=== PATIENT | female | born 1985 | race American Indian/Alaskan Native ===

== ENCOUNTER 2016-07-12 09:42 | Emergency (ER) | payer BC ==
[2016-07-12 09:59] VITALS: BP 112/45; PULSE 94; RESP 18; TEMP 98.6; O2SAT 100
[2016-07-12 10:00] VITALS: BMI 35.4
--- NOTE | 2016-07-12 10:37 | C.PDOC ---
History Of Present Illness A 30 year old female presents to the ED c/o vaginal bleeding and lower abdominal pain since yesterday. Patient reports the abdominal pain as a cramping pain. Patient is 3 months and does not know how many pregnancies she has had but notes having 2 children. Patient denies fever, chills, diarrhea, LOC, headache, or any other complaints. Time Seen by Provider: 07/12/16 09:57 Chief Complaint (Nursing): Female Genitourinary History Per: Patient History/Exam Limitations: no limitations Onset/Duration Of Symptoms: Days Current Symptoms Are (Timing): Still Present Severity: Mild Location Of Pain/Discomfort: Other (Lower abdominal) Associated Symptoms: denies: Fever, Chills, Diarrhea Past Medical History Reviewed: Historical Data, Nursing Documentation, Vital Signs Vital Signs: Last Vital Signs Temp 98.6 F 07/12/16 09:57 Pulse 94 H 07/12/16 09:57 Resp 18 07/12/16 09:57 BP 112/45 L 07/12/16 09:57 Pulse Ox 100 07/17/16 08:54 Family History: States: Unknown Family Hx - Social History Hx Tobacco Use: No Hx Alcohol Use: No Hx Substance Use: No - Immunization History Hx Tetanus Toxoid Vaccination: No Hx Influenza Vaccination: Yes Hx Pneumococcal Vaccination: No Review Of Systems Except As Marked, All Systems Reviewed And Found Negative. Constitutional: Negative for: Fever, Chills Gastrointestinal: Positive for: Abdominal Pain (Lower abdominal). Negative for : Diarrhea Genitourinary: Positive for: Vaginal Bleeding Neurological: Negative for: Headache, Other (LOC) Physical Exam - Physical Exam Appears: Non-toxic, No Acute Distress Skin: Warm, Dry Head: Atraumatic, Normacephalic Eye(s): bilateral: Normal Inspection Cardiovascular: Rhythm Regular, No Murmur Respiratory: Normal Breath Sounds, No Rales, No Rhonchi, No Wheezing Gastrointestinal/Abdominal: Soft, No Tenderness Neurological/Psych: Oriented x3, Normal Speech, Normal Cognition ED Course And Treatment O2 Sat by Pulse Oximetry: 100 (Room air) Pulse Ox Interpretation: Normal - CT Scan/US US CT/US Interpretation: Impression: Intrauterine gestation compatible with gestational age 8 weeks 1 day by gestational sac calculation and 7 weeks 6 days by crown-rump length calculation. heart motion is not detected. Yolk sac is not visualized. Recommend correlation with quantitative beta HCG and SALES REPRESENTATIVE PUBLIC UTILITIES consultation. Small pelvic free fluid. Medical Decision Making Medical Decision Making: Plans: -US preg 1st trimester/OB TV -Reassess and disposition Results discussed with pt ie high quant but no FH. very likely start of miss however pt will need additional quant and US Plan return to the ED in 2 days for same Disposition - Disposition Disposition: HOME/ ROUTINE Disposition Time: 12:12 Condition: GOOD Additional Instructions: Return to the ED in 2 - 3 days to have repeat blood test Return promptly for new or worsening symptoms Instructions: Threatened Miscarriage (ED) Forms: Work/School/Gym Excuse - Clinical Impression Clinical Impression: Threatened - Scribe Statement The provider has reviewed the documentation as recorded by the Scribe Nery prater All medical record entries made by the Quetaibe were at my direction and personally dictated by me. I have reviewed the chart and agree that the record accurately reflects my personal performance of the history, physical exam, medical decision making, and the department course for this patient. I have also personally directed, reviewed, and agree with the discharge instructions and disposition.
--- NOTE | 2016-07-12 12:04 | US ---
Indication: 12 weeks bleeding Comparison: No recent prior study available for comparison. Transvaginal pelvic ultrasound performed 02/24/15 Technique: Real-time transabdominal pelvic ultrasound was performed. In addition a transvaginal pelvic ultrasound was necessary to better depict pelvic anatomy Findings: The uterus measures approximately 11.2 x 5.3 x 6.2 cm. There is a single intrauterine fetus present. Yolk sac is not identified. The gestational sac measures 3.2 cm and is compatible with a gestational age of 8 weeks 1 day. The crown-rump length measures 1.5 cm and is compatible with a gestational age of 7 weeks 6 days. heart motion is not detected. Cervix length measures approximately 3.5 cm. The right ovary measures 3.0 x 2.2 x 2.9 cm. The left ovary measures 2.8 x 1.3 x 1.9 cm. Blood flow was demonstrated to both ovaries. Small pelvic free fluid. Impression: Intrauterine gestation compatible with gestational age 8 weeks 1 day by gestational sac calculation and 7 weeks 6 days by crown-rump length calculation. heart motion is not detected. Yolk sac is not visualized. Recommend correlation with quantitative beta HCG and MH TEACHER consultation. Small pelvic free fluid.
== END 2016-07-12 13:02 | disposition home or self-care (01) ==
LOC: C.ER 09:42
DX: O20.0 Threatened abortion (principal); Z3A.08 8 weeks gestation of pregnancy

== ENCOUNTER 2016-07-15 10:53 | Emergency (ER) | payer BC ==
[2016-07-15 10:54] VITALS: BMI 35.4
--- NOTE | 2016-07-15 13:11 | C.PDOC ---
History Of Present Illness Patient is a 30 y/o female, , that presents to the ED for repeat blood work. Patient was seen in ED on 07/12/16 for vaginal bleeding, and lower abdominal pain. Patient had ultrasound done at the time which showed IUP approximately 5 weeks, but no FHR. Patient was told to return to ED today for repeat blood work. Patient states bleeding and pain had increased last night with contraction like pain and with passage of blood clots. Pt states her pain and bleeding markedly decreased since last night. Otherwise, denies any n/v/d, fever, chills, or any other associated symptoms at this time. LMP: "end of March" Time Seen by Provider: 07/15/16 11:18 Chief Complaint (Nursing): Female Genitourinary History Per: Patient History/Exam Limitations: no limitations Onset/Duration Of Symptoms: Days Current Symptoms Are (Timing): Still Present Quality Of Discomfort: "Pain" Associated Symptoms: denies: Fever, Chills, Nausea, Vomiting, Diarrhea, Loss Of Appetite, Back Pain, Chest Pain, Constipation, Urinary Symptoms Alleviating Factors: None Recent travel outside of the [place]: No Additional History Per: Patient Abnormal Vaginal Bleeding: Yes Last Menstral Period: "end of March" : 5 Para: 2 Past Medical History Reviewed: Historical Data, Nursing Documentation, Vital Signs Vital Signs: Last Vital Signs Temp 98.3 F 07/15/16 17:35 Pulse 94 H 07/15/16 17:35 Resp 17 07/15/16 17:35 BP 129/72 07/15/16 17:35 Pulse Ox 99 07/15/16 17:35 Family History: States: Unknown Family Hx - Social History Hx Tobacco Use: No Hx Alcohol Use: No Hx Substance Use: No - Immunization History Hx Tetanus Toxoid Vaccination: No Hx Influenza Vaccination: Yes Hx Pneumococcal Vaccination: No Review Of Systems Except As Marked, All Systems Reviewed And Found Negative. Constitutional: Negative for: Fever, Chills Gastrointestinal: Positive for: Abdominal Pain. Negative for: Nausea, Vomiting , Diarrhea, Constipation Genitourinary: Positive for: Vaginal Bleeding. Negative for: Dysuria, Frequency , Hematuria Musculoskeletal: Negative for: Back Pain Physical Exam - Physical Exam Appears: Non-toxic, No Acute Distress Skin: Normal Color, Warm, Dry Head: Atraumatic, Normacephalic Eye(s): bilateral: Normal Inspection, EOMI Neck: Normal ROM, Supple Chest: Symmetrical, No Tenderness Cardiovascular: Rhythm Regular, No Murmur Respiratory: Normal Breath Sounds, No Rales, No Rhonchi, No Wheezing Gastrointestinal/Abdominal: Soft, No Tenderness, No Guarding, No Rebound Back: No CVA Tenderness Pelvic: Normal External Exam, Vaginal Bleeding, No Cervical Motion Tenderness, No Cervix Open (ext os open fingertip, internal os closed. ) Extremity: Normal ROM Neurological/Psych: Oriented x3, Normal Speech, Normal Cognition ED Course And Treatment O2 Sat by Pulse Oximetry: 100 (on RA) Pulse Ox Interpretation: Normal - CT Scan/US transvaginal US Other Rad Studies (CT/US): Read By Radiologist, Radiology Report Reviewed CT/US Interpretation: FINDINGS: UTERUS: Measures 10.1 x 5.4 x 6.2 cm. Anteverted. ENDOMETRIUM: Measures 1.5 cm in diameter. Heterogeneous appearance. Evidence of vascularity. CERVIX: No cervical abnormality identified. RIGHT OVARY: Measures 2.5 x 1.8 x 2.2 cm. Blood flow is demonstrated. LEFT OVARY: Measures 2.8 x 1.6 x 2.3 cm. Blood flow is demonstrated. FREE FLUID: No significant free fluid noted. OTHER FINDINGS: None. IMPRESSION: Intrauterine gestational sac no longer evident. Thickened heterogeneous appearance of the endometrium with evidence of vascularity suspicious for retained products of conception. Correlate clinically. Findings discussed with Brisa Mahan on 07/15/16 at 2:58 p.m. Progress Note: Beta HCG, and transvaginal ultrasound ordered and reviewed. Medical Decision Making Medical Decision Making: pt with decreased beta today (3953) compared to 07/02 (17, 662)- likely a complete ab; await sono results. pt had type and screen done on 07/12, blood type O+. [address] Burkett, no iup seen, +thickened emdometrium, likely retained products. message left for Dr Lerma (oncall ob today); she will come see patient. discussed with Dr Burkett; with closed os. pt can be discharged with methergine 0.2 mg po q 4 htrs x 6 doses with prop making supervisor f/u. Disposition Discussed With : Vilma George Counseled Patient/Family Regarding: Studies Performed, Diagnosis, Need For Followup, Rx Given - Disposition Referrals: Vilma George MD [Staff Provider] - Disposition: HOME/ ROUTINE Disposition Time: 16:59 Condition: STABLE Additional Instructions: Take Methergine rosario 4 hours until completed. Take Ibuprofen 800 mg by mouth every 8 hours for pain, take with food. Follow up with your tuberculosis specialist or with Dr George as soon as possible. Return to ER for any worsening symptoms., Prescriptions: Ibuprofen [Motrin Tab] 800 mg PO Q8 #20 tab Methylergonovine Maleate [Methergine] 0.2 mg PO Q4 #5 tablet Instructions: Spontaneous Miscarriage (ED) Forms: General Discharge Instructions, Work/School/Gym Excuse - Clinical Impression Clinical Impression: Incomplete - PA / AUDIO VISUAL ARTS DIRECTOR / Resident Statement MD/DO has reviewed & agrees with the documentation as recorded. - Scribe Statement The provider has reviewed the documentation as recorded by the Scribe Dayne Sue All medical record entries made by the Scribe were at my direction and personally dictated by me. I have reviewed the chart and agree that the record accurately reflects my personal performance of the history, physical exam, medical decision making, and the department course for this patient. I have also personally directed, reviewed, and agree with the discharge instructions and disposition.
--- NOTE | 2016-07-15 15:01 | US ---
HISTORY: vag bleeding preg COMPARISON: Pelvic ultrasound performed 07/12/16. TECHNIQUE: Real-time transabdominal pelvic ultrasound was performed. In addition a transvaginal pelvic ultrasound was necessary to better depict pelvic anatomy FINDINGS: UTERUS: Measures 10.1 x 5.4 x 6.2 cm. Anteverted. ENDOMETRIUM: Measures 1.5 cm in diameter. Heterogeneous appearance. Evidence of vascularity. CERVIX: No cervical abnormality identified. RIGHT OVARY: Measures 2.5 x 1.8 x 2.2 cm. Blood flow is demonstrated. LEFT OVARY: Measures 2.8 x 1.6 x 2.3 cm. Blood flow is demonstrated. FREE FLUID: No significant free fluid noted. OTHER FINDINGS: None. IMPRESSION: Intrauterine gestational sac no longer evident. Thickened heterogeneous appearance of the endometrium with evidence of vascularity suspicious for retained products of conception. Correlate clinically. Findings discussed with Brisa Mahan on 07/15/16 at 2:58 p.m.
[2016-07-15 17:37] VITALS: BP 129/72; PULSE 94; RESP 17; TEMP 98.3
[2016-07-15 19:00] VITALS: O2SAT 100
== END 2016-07-15 17:37 | disposition home or self-care (01) ==
LOC: C.ER 10:53
DX: O03.4 Incomplete spontaneous abortion without complication (principal)

== ENCOUNTER 2016-10-15 12:07 | Emergency (ER) | payer BC ==
[2016-10-15 12:08] VITALS: BMI 35.4
--- NOTE | 2016-10-15 13:27 | C.PDOC ---
History Of Present Illness 31 y/o female presents to the emergency department with complaints of vaginal bleeding. Pt states she was seen here for miscarriage in June. Her first menses since then was 08/24. Pt states her last menses started 10/04 and is still bleeding, stating "it's not normal." Pt reports mild lower back and abdominal cramping consistent with typical menstrual cramps. Denies, fever, chills, chest pain, palpitations, headache, dizziness vomiting, or any other complaints. Time Seen by Provider: 10/15/16 13:15 Chief Complaint (Nursing): Female Genitourinary History Per: Patient History/Exam Limitations: no limitations Onset/Duration Of Symptoms: Days Current Symptoms Are (Timing): Still Present Severity: Mild Associated Symptoms: denies: Fever, Chills, Nausea, Vomiting, Chest Pain Alleviating Factors: None Recent travel outside of the [place]: No Abnormal Vaginal Bleeding: Yes Past Medical History Reviewed: Historical Data, Nursing Documentation, Vital Signs Vital Signs: Last Vital Signs Temp 97.4 F L 10/15/16 17:09 Pulse 80 10/15/16 17:09 Resp 14 10/15/16 17:09 BP 125/84 10/15/16 17:09 Pulse Ox 100 10/15/16 17:09 Family History: States: Unknown Family Hx - Social History Hx Tobacco Use: No Hx Alcohol Use: No Hx Substance Use: No - Immunization History Hx Tetanus Toxoid Vaccination: No Hx Influenza Vaccination: Yes Hx Pneumococcal Vaccination: No Review Of Systems Except As Marked, All Systems Reviewed And Found Negative. Constitutional: Negative for: Fever, Chills Cardiovascular: Negative for: Chest Pain, Palpitations Respiratory: Negative for: Shortness of Breath Gastrointestinal: Negative for: Nausea, Vomiting Genitourinary: Positive for: Vaginal Bleeding Neurological: Negative for: Headache, Dizziness Physical Exam - Physical Exam Appears: Non-toxic, No Acute Distress Skin: Warm, Dry, No Rash Head: Atraumatic, Normacephalic Eye(s): bilateral: Normal Inspection (conjunctiva normal), PERRL, EOMI Oral Mucosa: Moist Neck: Normal, Normal ROM, Supple Chest: Symmetrical Cardiovascular: Rhythm Regular Respiratory: Normal Breath Sounds, No Rales, No Rhonchi, No Wheezing Gastrointestinal/Abdominal: Normal Exam, Soft, No Tenderness Back: Normal Inspection Extremity: Bilateral: Atraumatic Neurological/Psych: Oriented x3, Normal Speech, Normal Cognition ED Course And Treatment - Laboratory Results Result Diagrams: 10/15/16 16:30 10/15/16 16:30 O2 Sat by Pulse Oximetry: 99 (room air) Pulse Ox Interpretation: Normal Medical Decision Making Medical Decision Making: Patient had a miscarriage in June, as per patient. Her Ucg is positive, but beta is 22, US shown normal pelvic exam. Possible early vs threatened AB Disposition Counseled Patient/Family Regarding: Studies Performed, Need For Followup - Disposition Referrals: [facility] [Outside] [facility] [Outside] Disposition: HOME/ ROUTINE Disposition Time: 18:06 Condition: STABLE Additional Instructions: Follow up with your school aide. If you don't have one, follow up in clinic [facility] CONSTRUCTION WORKER. rest, have your blood test repeated in a few days to evaluate There is a small possibility you have a very early , more likely you are having an irregular mensis and either way you need to follow up with CONSTRUCTION WORKER. Instructions: Menorrhagia (ED) Forms: [facility] (Lao) - POA Present On Arrival: None - Clinical Impression Clinical Impression: Menometrorrhagia - Scribe Statement The provider has reviewed the documentation as recorded by the Randell Anrold Provider Attestation: All medical record entries made by the Randell were at my direction and personally dictated by me. I have reviewed the chart and agree that the record accurately reflects my personal performance of the history, physical exam, medical decision making, and the department course for this patient. I have also personally directed, reviewed, and agree with the discharge instructions and disposition.
[2016-10-15 15:23] LABS: RBC URINE 17 /hpf (0-3); URINE BACTERIA RARE (<OCC); URINE BILIRUBIN NEGATIVE (NEGATIVE); URINE BLOOD 3+ (NEGATIVE); URINE COLOR Amber (YELLOW); URINE GLUCOSE (UA) NORMAL (Normal); URINE KETONE TRACE mg/dL (NEGATIVE); URINE PROTEIN 1+ mg/dL (NEGATIVE); WBC URINE 13 /hpf (0-5)
[2016-10-15 15:31] LABS: URINE LEUKOCYTE ESTERASE 1+ Leu/uL (Negative)
[2016-10-15 16:34] LABS: BASO # 0.1 K/uL (0.0-0.2); BASO % 0.7 % (0.0-2.0); EOS # 0.2 K/uL (0.0-0.7); EOS % 2.3 % (0.0-4.0); HEMATOCRIT 42.8 % (34.0-47.0); LYMPH # 2.5 K/uL (1.0-4.3); LYMPH % 31.1 % (20.0-40.0); MEAN CORPUSCULAR HEMOGLOBIN 27.6 pg (27.0-31.0); MEAN CORPUSCULAR HGB CONC 32.7 g/dL (33.0-37.0); MONO # 0.9 K/uL (0.0-0.8); MONO % 11.2 % (0.0-10.0); NRBC % 0.1 % (0.0-2.0); WHITE BLOOD COUNT 8.2 K/uL (4.8-10.8)
[2016-10-15 16:35] LABS: MEAN CELL VOLUME 84.4 fL (81.0-99.0)
[2016-10-15 16:44] LABS: CHLORIDE 100 mmol/L (98-107); POTASSIUM 4.3 mmol/L (3.6-5.2); SODIUM 141 mmol/L (132-148)
[2016-10-15 16:46] LABS: GFR AFRICAN-AMERICAN > 60
[2016-10-15 16:47] LABS: BLOOD UREA NITROGEN 7 mg/dL (7-17); CARBON DIOXIDE 25 mmol/L (22-30); GLUCOSE,RANDOM 98 mg/dL (65-105)
[2016-10-15 17:10] VITALS: BP 125/84; PULSE 80; RESP 14; TEMP 97.4
[2016-10-15 18:06] VITALS: O2SAT 99
--- NOTE | 2016-10-15 18:08 | US ---
HISTORY: and bleeding COMPARISON: Pelvis ultrasound performed 07/15/16 TECHNIQUE: Pelvis/transvaginal ultrasound FINDINGS: UTERUS: Measures 7.5 x 4.4 x 4.9 cm. Retroverted. ENDOMETRIUM: Measures 3 mm in diameter. No intrauterine gestational sac identified. CERVIX: Cervix length measures approximately 3.6 cm. RIGHT OVARY: Measures 2.9 x 1.8 x 2.2 cm. Blood flow is demonstrated. LEFT OVARY: Measures 3.0 x 1.7 x 2.9 cm. Blood flow is demonstrated. FREE FLUID: Small pelvic free fluid within the cul-de-sac. OTHER FINDINGS: None. IMPRESSION: No evidence of intrauterine gestational sac. If indeed the patient is based on serum beta HCG values, the sonographic findings represent either: Very early IUP; embryonic demise; ectopic gestation. Follow-up with serial quantitative serum beta HCG measurements and post OBGYN follow-up as clinically indicated, since ectopic gestation cannot be excluded based only on sonographic findings. Small pelvic free fluid within the cul-de-sac.
== END 2016-10-15 18:35 | disposition home or self-care (01) ==
LOC: C.ER 12:07
DX: N92.1 Excessive and frequent menstruation with irregular cycle (principal)

== ENCOUNTER 2017-02-05 09:39 | Emergency (ER) | payer BC ==
[2017-02-05 09:57] VITALS: BMI 34.9
--- NOTE | 2017-02-05 10:15 | C.PDOC ---
History Of Present Illness <Reynaldo Irving M - Last Filed: 02/05/17 13:06> <Reginald May - Last Filed: 02/05/17 13:20> This is a 31 y/o F with no pmhx who is presenting for evaluation on lower abdominal cramping x 4 days. She offers that her periods are irregular, presenting every 4-6 weeks. Her LDMP was December 25 2016, so she is in the window to be getting her period soon. Additionally she expresses c/o possible as she has been sexually active without any form of contraceptive care. She localizes her cramping to the lower abdomen, midline and states that she feels this radiate to her back. She characterizes her pain as a cramping sensation and states that there is no real pain to it, just discomfort. She has not sought out any medical care prior to today's presentation. She has not tried any analgesics to relieve her discomfort. She denies headache/n/v/d/c/ dysuria/fevers and chills. (Reginald May) <Reynaldo Irving M - Last Filed: 02/05/17 13:06> <Reginald May - Last Filed: 02/05/17 13:20> Time Seen by Provider: 02/05/17 10:05 Chief Complaint (Nursing): Abdominal Pain Past Medical History - Medical History PMH: No Chronic Diseases Surgical History: No Surg Hx Family History: States: Unknown Family Hx - Social History Hx Tobacco Use: No Hx Alcohol Use: No Hx Substance Use: No - Immunization History Hx Tetanus Toxoid Vaccination: No Hx Influenza Vaccination: Yes Hx Pneumococcal Vaccination: No <Reginald May - Last Filed: 02/05/17 13:20> Vital Signs: Last Vital Signs Temp 98.1 F 02/05/17 13:16 Pulse 72 02/05/17 13:16 Resp 18 02/05/17 13:16 BP 120/69 02/05/17 13:16 Pulse Ox 98 02/05/17 13:16 Review Of Systems Constitutional: Negative for: Fever, Chills Cardiovascular: Negative for: Chest Pain, Palpitations Respiratory: Negative for: Cough, Shortness of Breath Gastrointestinal: Positive for: Abdominal Pain (lower abdomen-midline). Negative for: Nausea, Vomiting, Diarrhea, Constipation, Hematochezia Genitourinary: Negative for: Dysuria, Frequency, Incontinence, Hematuria, Vaginal Discharge Skin: Negative for: Rash Neurological: Negative for: Weakness, Numbness <Reginald May - Last Filed: 02/05/17 13:20> Physical Exam - Physical Exam Appears: Well, No Acute Distress Skin: Warm, Dry Head: Atraumatic, Normacephalic Eye(s): bilateral: Normal Inspection, PERRL Oral Mucosa: Moist Throat: Normal, No Erythema, No Exudate Cardiovascular: Rhythm Regular Respiratory: Normal Breath Sounds, No Rales, No Rhonchi Gastrointestinal/Abdominal: Soft, No Tenderness, No Guarding Neurological/Psych: Oriented x3, Normal Speech Gait: Steady <Reginald May - Last Filed: 02/05/17 13:20> ED Course And Treatment - Laboratory Results Result Diagrams: 02/05/17 11:07 02/05/17 11:07 <Reynaldo Irving - Last Filed: 02/05/17 13:06> - Laboratory Results Result Diagrams: 02/05/17 11:07 02/05/17 11:07 <Reginald May - Last Filed: 02/05/17 13:20> Medical Decision Making <Reynaldo Irving - Last Filed: 02/05/17 13:06> <Reginald May - Last Filed: 02/05/17 13:20> Medical Decision Making: Patient was seen and evaluated by resident DR. May. I have spoken to the patient and also examined. Abdomen is soft and non tender, with positive bowel sounds. I discussed the results with patient and instructed patient to follow up with her OBGYN for further evaluation. 2+ Leukocyte and will treat with Macrobid. Patient is advised to have a repeat US with her OB. Discussed with patient to return to ER for any new concerning symptoms. (Reynaldo Irving) POC test was positive Confirmation urine HCG qualitative was positive Serum B-HCG quantitative was ordered and resulted Pelvic ultrasound was used to r/o ectopic I spoke with patient and explained her test results to her She will need to follow up with her PCP Dr. Bear as well as her WARES SORTER Dr. Sue (Reginald May) Disposition - Disposition Disposition Time: 13:03 <Reynaldo Irving - Last Filed: 02/05/17 13:06> Discussed With DrLuz: Reynaldo Irving Doctor Will See Patient In The: ED Counseled Patient/Family Regarding: Diagnosis, Need For Followup - POA Present On Arrival: None <Reginald May - Last Filed: 02/05/17 13:20> - Disposition Referrals: Misa Bear MD [Primary Care Provider] - Disposition: HOME/ ROUTINE Condition: STABLE Additional Instructions: follow up with your manager eligibility in 2 days call to make an appointment take medications as prescribed return to ER if symptoms worsens or progress Prescriptions: Nitrofurantoin Macrocrystals [Macrobid] 100 mg PO BID #14 cap Instructions: (ED), Urinary Tract Infection in Women (ED) Forms: [facility] (Egyptian), General Discharge Instructions - Clinical Impression Clinical Impression: , Abdominal pain, Threatened , Urinary tract infection
[2017-02-05 10:56] LABS: RBC URINE 1 /hpf (0-3); URINE BACTERIA FEW (<OCC); URINE BILIRUBIN NEGATIVE (NEGATIVE); URINE BLOOD NEGATIVE (NEGATIVE); URINE COLOR Yellow (YELLOW); URINE GLUCOSE (UA) NORMAL (Normal); URINE KETONE NEGATIVE (NEGATIVE); URINE LEUKOCYTE ESTERASE 2+ Leu/uL (Negative); URINE PROTEIN NEGATIVE (NEGATIVE); URINE UROBILINOGEN NORMAL mg/dL (0.2-1.0); WBC URINE 2 /hpf (0-5)
[2017-02-05 11:12] LABS: BASO % 0.5 % (0.0-2.0); EOS # 0.2 K/uL (0.0-0.7); EOS % 2.9 % (0.0-4.0); HEMATOCRIT 39.9 % (34.0-47.0); LYMPH # 1.7 K/uL (1.0-4.3); LYMPH % 33.4 % (20.0-40.0); MEAN CELL VOLUME 84.2 fL (81.0-99.0); MEAN CORPUSCULAR HEMOGLOBIN 27.5 pg (27.0-31.0); MEAN CORPUSCULAR HGB CONC 32.7 g/dL (33.0-37.0); MEAN PLATELET VOLUME 9.7 fL (7.2-11.7); MONO # 0.4 K/uL (0.0-0.8); MONO % 8.6 % (0.0-10.0); RED CELL DISTRIBUTION WIDTH 14.7 % (11.5-14.5); WHITE BLOOD COUNT 5.2 K/uL (4.8-10.8)
[2017-02-05 11:52] LABS: BLOOD UREA NITROGEN 6 mg/dL (7-17); CALCIUM 8.3 mg/dl (8.6-10.4); CARBON DIOXIDE 24 mmol/L (22-30); CHLORIDE 103 mmol/L (98-107); GFR AFRICAN-AMERICAN > 60; GLUCOSE,RANDOM 102 mg/dL (65-105); POTASSIUM 3.9 mmol/L (3.6-5.2); SODIUM 135 mmol/L (132-148)
--- NOTE | 2017-02-05 12:38 | US ---
Indication: r/o ectopic Comparison: Pelvis/transvaginal ultrasound performed 10/15/16 Technique: Real-time transabdominal pelvic ultrasound was performed. In addition a transvaginal pelvic ultrasound was necessary to better depict pelvic anatomy. Findings: The uterus measures approximately 10.3 x 5.3 x 5.8 cm. Anteverted. Small cystic focus measuring approximately 4 mm presumed to represent an intrauterine gestational sac, too small for gestational age calculation. No evidence of yolk sac or pole at this time. The right ovary measures 3.0 x 1.8 x 3.4 cm. The left ovary measures 2.6 x 1.4 x 3.0 cm. Blood flow was demonstrated to both ovaries. Small fluid within the cul-de-sac. Impression: Small cystic focus measuring approximately 4 mm presumed to represent an intrauterine gestational sac, too small for gestational age calculation. No evidence of yolk sac or pole at this time. Recommend correlation with quantitative beta HCG and follow-up as indicated.
[2017-02-05 13:16] VITALS: RESP 18; O2SAT 98
[2017-02-05 13:17] VITALS: BP 120/69; PULSE 72; TEMP 98.1
== END 2017-02-05 13:18 | disposition home or self-care (01) ==
LOC: SUPCPDRO 09:39 → C.ER 09:39
DX: O20.0 Threatened abortion (principal); O23.40 Unspecified infection of urinary tract in pregnancy, unspecified trimester; Z3A.00 Weeks of gestation of pregnancy not specified

== ENCOUNTER 2017-02-15 01:20 | Emergency (ER) | payer BC ==
[2017-02-15 01:21] VITALS: BMI 34.9
[2017-02-15 01:46] VITALS: O2SAT 100
[2017-02-15 03:12] LABS: RBC URINE 1 /hpf (0-3); URINE BACTERIA RARE (<OCC); URINE BILIRUBIN NEGATIVE (NEGATIVE); URINE BLOOD NEGATIVE (NEGATIVE); URINE COLOR Yellow (YELLOW); URINE GLUCOSE (UA) NORMAL (Normal); URINE KETONE NEGATIVE (NEGATIVE); URINE LEUKOCYTE ESTERASE TRACE Leu/uL (Negative); URINE PROTEIN NEGATIVE (NEGATIVE); WBC URINE 1 /hpf (0-5)
[2017-02-15 04:13] VITALS: BP 107/67; PULSE 82; RESP 18; TEMP 98
--- NOTE | 2017-02-15 04:21 | C.PDOC ---
History Of Present Illness 31 year old female presents to the ER with a complaint of lower back pain and constipation for the past 4 days. Patient reports she is 5 weeks and has been feeling nauseous and not well and is requesting an evaluation. Denies abdominal pain, vaginal bleeding, UTI symptoms, dizziness, or weakness. Patient was seen on 02/05/17 where she had a full OB work up but has not followed up with [employer]. Time Seen by Provider: 02/15/17 01:26 Chief Complaint (Nursing): Back Pain History Per: Patient History/Exam Limitations: no limitations Onset/Duration Of Symptoms: Days Current Symptoms Are (Timing): Still Present Quality Of Discomfort: Unable To Describe Previous Symptoms: None Associated Symptoms: Other (Constipation) Exacerbating Factor(s): Nothing Recent travel outside of the [place]: No Past Medical History Reviewed: Historical Data, Nursing Documentation, Vital Signs Vital Signs: Last Vital Signs Temp 98 F 02/15/17 04:10 Pulse 82 02/15/17 04:10 Resp 18 02/15/17 04:10 BP 107/67 02/15/17 04:10 Pulse Ox 100 02/15/17 04:29 - Medical History PMH: No Chronic Diseases Surgical History: No Surg Hx Family History: States: Unknown Family Hx - Social History Hx Tobacco Use: No Hx Alcohol Use: No Hx Substance Use: No - Immunization History Hx Tetanus Toxoid Vaccination: No Hx Influenza Vaccination: Yes Hx Pneumococcal Vaccination: No Review Of Systems Constitutional: Negative for: Weakness Gastrointestinal: Positive for: Nausea. Negative for: Abdominal Pain Genitourinary: Negative for: Dysuria, Hematuria, Vaginal Bleeding Musculoskeletal: Positive for: Back Pain Neurological: Negative for: Dizziness Physical Exam - Physical Exam Appears: Non-toxic, No Acute Distress Skin: Normal Color, Warm, Dry Head: Atraumatic, Normacephalic Eye(s): bilateral: Normal Inspection Oral Mucosa: Moist Chest: Symmetrical, No Tenderness Cardiovascular: Rhythm Regular Respiratory: Normal Breath Sounds, No Rales, No Rhonchi, No Wheezing Gastrointestinal/Abdominal: Soft, No Tenderness Back: No CVA Tenderness Pelvic: Other (Refused) Neurological/Psych: Oriented x3, Normal Speech ED Course And Treatment O2 Sat by Pulse Oximetry: 100 (Room air) Pulse Ox Interpretation: Normal Progress Note: Urinalysis ordered, results were negative. Zofran administered for nausea. Patient given fleet enema with successful bowel movement. UA reviewed- normal. On reevaluation, patient report improvement of symptoms, she is ambulatory in the ER with no back discomfort. Will discharge home with Rx and instructions to follow up with PMD for further evaluation. Disposition Counseled Patient/Family Regarding: Studies Performed, Diagnosis, Rx Given - Disposition Disposition: HOME/ ROUTINE Disposition Time: 04:19 Condition: STABLE Additional Instructions: Increase PO fluids Eat small amount of foods at a time( Start in AM with tea, toast or crackers) Avoid heavy foods Return to ER if worse Prescriptions: Psyllium Husk/Aspartame [Metamucil Fiber Singles Packet] 3.4 gm PO DAILY #20 powd.pack Instructions: Constipation (ED), High Fiber Diet (ED) Forms: [facility] (Korean) - Clinical Impression Clinical Impression: Constipation, - Scribe Statement The provider has reviewed the documentation as recorded by the Scribfilomena Olivares All medical record entries made by the Scribe were at my direction and personally dictated by me. I have reviewed the chart and agree that the record accurately reflects my personal performance of the history, physical exam, medical decision making, and the department course for this patient. I have also personally directed, reviewed, and agree with the discharge instructions and disposition.
--- NOTE | 2017-02-15 04:23 | C.PDOC ---
Time Seen by Provider: 02/15/17 01:26 Chief Complaint (Nursing): Back Pain Past Medical History Vital Signs: Last Vital Signs Temp 98 F 02/15/17 04:10 Pulse 82 02/15/17 04:10 Resp 18 02/15/17 04:10 BP 107/67 02/15/17 04:10 Pulse Ox 100 02/15/17 04:10 Family History: States: Unknown Family Hx - Social History Hx Tobacco Use: No Hx Alcohol Use: No Hx Substance Use: No - Immunization History Hx Tetanus Toxoid Vaccination: No Hx Influenza Vaccination: Yes Hx Pneumococcal Vaccination: No ED Course And Treatment O2 Sat by Pulse Oximetry: 100 Disposition Counseled Patient/Family Regarding: Diagnosis, Need For Followup, Rx Given - Disposition Disposition: HOME/ ROUTINE Disposition Time: 04:19 Condition: STABLE Additional Instructions: Increase PO fluids Eat small amount of foods at a time( Start in AM with tea, toast or crackers) Avoid heavy foods Return to ER if worse Prescriptions: Psyllium Husk/Aspartame [Metamucil Fiber Singles Packet] 3.4 gm PO DAILY #20 powd.pack Instructions: Constipation (ED), High Fiber Diet (ED) - Clinical Impression Clinical Impression: Constipation,
== END 2017-02-15 04:34 | disposition home or self-care (01) ==
LOC: C.ER 01:20
DX: O26.891 Other specified pregnancy related conditions, first trimester (principal); Z3A.01 Less than 8 weeks gestation of pregnancy; K59.00 Constipation, unspecified

== ENCOUNTER 2017-04-23 16:48 | Emergency (ER) | payer BC ==
[2017-04-23 17:18] VITALS: BMI 34.1
[2017-04-23 17:33] VITALS: BP 118/80; PULSE 75; RESP 16; TEMP 97.8; O2SAT 98
[2017-04-23] MEDS ORDERED: Albuterol 0.083% Inhal Sol (2.5 mg/3 mL) UD IH STA (18:08)
[2017-04-23] MEDS ORDERED: Albuterol 0.083% Inhal Sol (2.5 mg/3 mL) UD ONE (18:19)
--- NOTE | 2017-04-23 18:52 | C.PDOC ---
History Of Present Illness 31 yo female, LNMP 12/11/16, 15 wks , come in for evaluation of cold sx for past 2 days associated with runny nose, dry cough, low grade fever, malaise. Otherwise, pt denies high fever, headache, dizziness, neck pain, drooling, CP, SOB, dyspnea, wheezing, abd. pain, V/D, vaginal bleeding, back pain. Ambulate to Ed for evaluation, not in any apparent distress. Time Seen by Provider: 04/23/17 17:57 Chief Complaint (Nursing): Flu-like Symptoms Past Medical History Vital Signs: Last Vital Signs Temp 97.8 F 04/23/17 17:29 Pulse 75 04/23/17 17:29 Resp 16 04/23/17 17:29 BP 118/80 04/23/17 17:29 Pulse Ox 98 04/23/17 17:29 Family History: States: Unknown Family Hx - Social History Hx Tobacco Use: No Hx Alcohol Use: No Hx Substance Use: No - Immunization History Hx Tetanus Toxoid Vaccination: No Hx Influenza Vaccination: Yes Hx Pneumococcal Vaccination: No Physical Exam - Physical Exam Appears: Well, Non-toxic, No Acute Distress Skin: Normal Color, Warm, Dry, No Rash Head: Normacephalic Eye(s): bilateral: PERRL Ear(s): Bilateral: Normal Nose: No Flaring, Discharge (clear rhinorrhea B/L) Oral Mucosa: Moist, No Drooling Tongue: Normal Appearing Lips: Normal Appearing Throat: Erythema (mild B/L), No Drooling Neck: Trachea Midline, Supple Cardiovascular: Rhythm Regular, No Murmur, No JVD Respiratory: No Decreased Breath Sounds, No Accessory Muscle Use, No Stridor, No Wheezing Gastrointestinal/Abdominal: Soft, No Tenderness, No Distention, No Guarding Back: No CVA Tenderness Extremity: Normal ROM, No Deformity, No Swelling Neurological/Psych: Oriented x3, Normal Speech ED Course And Treatment O2 Sat by Pulse Oximetry: 98 Pulse Ox Interpretation: Normal Progress Note: On re-evaluation, pt is afebrile, hemodynamicaly stable, not in any apparent distress. non-toxic. PulsEOx 98% rA. ENT: no acute findings. Neck: Supple, (-) meningeal sign. Lungs: CTA B/L, Bs equal B/L. Abd:benidgn, ( -) guarding, (-) rebound. Neuorlogicaly intact. Influenza (-). Pt has clinical findings c/w acute bronchitis, . Pt advised. ref. to f/u with PMD in 2-3 days for re-eval. return to ED if any worsening or new changes. Disposition Counseled Patient/Family Regarding: Diagnosis, Need For Followup, Rx Given - Disposition Disposition: HOME/ ROUTINE Disposition Time: 18:49 Condition: STABLE Additional Instructions: ENCOURAGE FLUIDS TAKE MEDICATION PRESCRIBED TYLENOL S NEED FOR PAIN AND FEVER FOLLOW UP WITH PMD IN 2-3 DAYS FOR RE-EVALUATION. RETURN TO ED IF ANY WORSENING OR NEW CHANGES. Prescriptions: Albuterol HFA [Ventolin HFA 90 mcg/actuation (8 g)] 1 puff IH Q6 #1 inhaler Azithromycin [Zithromax] 250 mg PO DAILY #4 tab Prednisone [Deltasone] 40 mg PO DAILY #6 tablet Instructions: Acute Bronchitis (ED) - Clinical Impression Clinical Impression: Bronchitis,
== END 2017-04-23 19:19 | disposition home or self-care (01) ==
LOC: C.ER 16:48
DX: O99.512 Diseases of the respiratory system complicating pregnancy, second trimester (principal); J40 Bronchitis, not specified as acute or chronic; Z3A.15 15 weeks gestation of pregnancy

== ENCOUNTER 2017-09-13 16:33 | Emergency (ER) | payer BC ==
[2017-09-13] MEDS ORDERED: Lactated Ringer's 1,000 ML IV ONE (17:12)
[2017-09-13 17:36] LABS: BASO % 0.2 % (0.0-2.0); EOS % 0.4 % (0.0-4.0); HEMOGLOBIN 11.1 g/dL (11.0-16.0); LYMPH # 1.2 K/uL (1.0-4.3); LYMPH % 13.4 % (20.0-40.0); MEAN CELL VOLUME 77.6 fL (81.0-99.0); MEAN CORPUSCULAR HEMOGLOBIN 25.5 pg (27.0-31.0); MEAN CORPUSCULAR HGB CONC 32.9 g/dL (33.0-37.0); MEAN PLATELET VOLUME 9.8 fL (7.2-11.7); MONO # 1.1 K/uL (0.0-0.8); MONO % 12.1 % (0.0-10.0); NEUT # 6.5 K/uL (1.8-7.0); NEUT % 73.9 % (50.0-75.0); NRBC % 0.1 % (0.0-2.0); RBC 4.34 Mil/uL (3.80-5.20); RED CELL DISTRIBUTION WIDTH 13.6 % (11.5-14.5); WHITE BLOOD COUNT 8.9 K/uL (4.8-10.8)
[2017-09-13 17:52] LABS: ALBUMIN 3.7 g/dL (3.5-5.0); ALT/SGPT 35 U/L (9-52); AST/SGOT 31 U/L (14-36); BLOOD UREA NITROGEN 6 mg/dL (7-17); CALCIUM 9.3 mg/dl (8.6-10.4); GFR AFRICAN-AMERICAN > 60; GFR NON-AFRICAN AMERICAN > 60
[2017-09-13 21:03] LABS: SQUAMOUS EPITHIAL 7 /hpf (0-5); URINE BILIRUBIN NEGATIVE (NEGATIVE); URINE BLOOD NEGATIVE (NEGATIVE); URINE CLARITY Clear (Clear); URINE COLOR Amber (YELLOW); URINE GLUCOSE (UA) NORMAL (Normal); URINE LEUKOCYTE ESTERASE NEG Leu/uL (Negative); URINE PROTEIN 1+ mg/dL (NEGATIVE)
--- NOTE | 2017-09-14 00:10 | OBHP ---
Datetime: 09/13/2017 17:30 IP Adm Impression: , intrauterine IP Chief Complaint Other: C/O of Nausea, vomiting for a couple of days IP Admit Plan: Admit to unit; Observation/Evaluation Admit Comment, IP Provider: 32 yo female with an IUP at 36 1/7 weeks [address] sent by Dr. Sue for evaluatiion of persistent N_V for a couple of days. + FM and denies leaking or bleeding. No contractions Reassuring tracing Labs were ordered, IV hydration with LR and antiemetics were order. Will reassess later Pelvic Type - PN: Not Done Extremities - PN: Normal Abdomen - PN: Normal Back - PN: Normal Breast - PN: Not Done Lungs - PN: Normal Heart - PN: Normal Thyroid - PN: Normal Neurologic - PN: Normal HEENT - PN: Normal General - PN: Normal Presentation-Admit: Vertex FHR - Baseline A Provider: 130 Membranes, Provider: Intact Contraction Comments Provider: None Gestation - Est Wks by US: 36 1/7 EGA AdmitDate IP: 36.1 Vital Signs Provider: Reviewed; Within Normal Limits IP Chief Complaint: Illness; Other NICHD Variability Prov Fetus A: Moderate 6-25bpm NICHD Accel Fetus A IP Provider: 10X10 FHR Category Provider Fetus A: Category I NICHD Decel Fetus A IP Provider: None Dilatation, Provider: N/A Genitourinary Exam: Normal DTRs - PN: Not Done
--- NOTE | 2017-09-14 00:14 | OBDCSUM ---
Datetime: 09/13/2017 21:37 Discharged to, Provider: Home Follow up at, Provider: Disch Instr Activity: Normal activity Disch Instr Diet: Regular Discharge Diet restrict Prov: Increase po water intake Discharge Instructions, Provider: Specific instructions as noted Discharge Time: 09/13/2017 21:37 Follow up in weeks, Provider: 09/16/17 Disch Referrals: None Discharge Comment, Provider: FHT's reassuring/ No contractions [place] much better after IV Hydration Labs essentially WNL except + Dehydration in urine Nausea and vomiting stopped after Zofran Pt slept for a while and woke up feeling much better and requested to go home. Discharge home in Stable and Satisfactory condition Dr. Sue was notified of pt's condition and recovery Discharge Diagnosis Prov Other: S/P N_V
[2017-09-14 04:23] VITALS: BP 114/65; PULSE 100; RESP 18; TEMP 99
[2017-09-14] MEDS ORDERED: Prenatal Multivit/Folic Acid/Iron Tab PO SCH (10:00)
== END 2017-09-13 21:45 | disposition home or self-care (01) ==
LOC: C.EROB 16:33
DX: O21.9 Vomiting of pregnancy, unspecified (principal); Z3A.36 36 weeks gestation of pregnancy
CPT/HCPCS: 80053; 81001; 85025; 99283; J2405; J7120

== ENCOUNTER 2017-09-15 16:03 | Emergency (ER) | payer BC ==
--- NOTE | 2017-09-15 17:48 | OBHP ---
Datetime: 09/15/2017 17:39 IP Chief Complaint Other: Severe heartburn and nausea sometimes Admit Comment, IP Provider: 32 yo female with an IUP at 36 weeks and presented with c/o of s evere heartburn for 2 days and worsening and making impossible to even eat. Not helped with Mylanta Admits to adequate FM and FH tracing reactive. Pt was seen in [facility] on 09/13 with complain of intractable N_V, Dehydration and was treated and felt better and was discharged home. Will give Pepcid po and do a NST and continue observation Pelvic Type - PN: Not Done Extremities - PN: Not Done Abdomen - PN: Abnormal Back - PN: Not Done Breast - PN: Not Done Lungs - PN: Normal Heart - PN: Normal Thyroid - PN: Not Done Neurologic - PN: Normal HEENT - PN: Normal General - PN: Normal FHR - Baseline A Provider: 130 Membranes, Provider: Intact Contraction Comments Provider: Ocassional Comments, ACOG Physical Exam: + epigastric tenderness Gestation - Est Wks by US: 36.3 EGA AdmitDate IP: 36.3 Vital Signs Provider: Reviewed IP Chief Complaint: Illness; Maternal discomfort; Other NICHD Variability Prov Fetus A: Moderate 6-25bpm NICHD Accel Fetus A IP Provider: 10X10 FHR Category Provider Fetus A: Category I NICHD Decel Fetus A IP Provider: None Genitourinary Exam: Not Done DTRs - PN: Not Done
--- NOTE | 2017-09-15 19:19 | OBDCSUM ---
Datetime: 09/15/2017 18:46 Discharged to, Provider: Home Follow up at, Provider: dr aggarwal on saturday Disch Instr Activity: Normal activity Disch Instr Diet: Regular Discharge Instructions, Provider: Routine instructions given Discharge Time: 09/15/2017 18:46 Follow up in weeks, Provider: saturday Disch Referrals: None Discharge Comment, Provider: Pt was given one dose of Pepcid and felt much better Tolerated flat Trupti Yue tracing reassuring all the time here and no labor D/C home with instructions and Rx for Pepcid [address] Aggarwal notified by me via phone Discharge Diagnosis Prov Other: Abdominal Pain Heartburn
[2017-09-15 23:03] VITALS: BP 117/73; PULSE 96
== END 2017-09-15 19:00 | disposition home or self-care (01) ==
LOC: C.EROB 16:03
DX: O26.893 Other specified pregnancy related conditions, third trimester (principal); R12 Heartburn; Z3A.36 36 weeks gestation of pregnancy

== ENCOUNTER 2017-09-30 13:30 | Emergency (ER) | payer BC ==
--- NOTE | 2017-09-30 16:17 | OBHP ---
Datetime: 09/30/2017 13:48 IP Adm Impression: Term, intrauterine ; Intact Membranes IP Admit Plan: Observation/Evaluation Admit Comment, IP Provider: CC: Abdominal Pain HPI: Patient is a 32 year old at 38 weeks and 4 days, with LMP ( December) and due date by LMP ( 10/10/17), who presents to the clinic with complaints of lower back cramping, lower abdominal pr essure and vaginal discomfort. Patient admits to movement and admits to possible leakage of flu id but denies vaginal bleeding. Patient's last sexual intercourse was 10/03/17. Acute Coordinator Hx: Menarche: 12 Tri[place]: Regular, 3-5 days Denies hx of fibroid, ovarian cyst, STDs and abnormal pap smear OB Hx: G1: Baby girl, 03/13/2006, 6ibs 7oz, 21 inches, vaginal delivery and no complications G2: Baby girl, 01/04/11, 6lbs 6oz, 19 inches, vaginal delivery and no complications G3: Misscarriage at 13 weeks G4: Current, no complications PMHx: Denies PSHx: Dental work FHX: mother: HTN, DM and Asthma Father: HTN Medications: not taking prenatals due to hyperemesis Allergies: Latex, Hives Social Hx: Lives with her children, 3 cigarettes per day ( No cigars during this ), ETOH and illicit drug VS: BP (117/73), HR (96) Physical Exam: See above A/p: Patient is a 32 year old at 38 weeks and 4 days, with LMP ( December) and due date by LMP ( 10/10/17), who presents to the clinic with complaints of lower back cramping, lower abdominal pressur e and vaginal discomfort. Admitted to [facility] for monitoring and observation Pelvic Type - PN: Adequate Extremities - PN: Normal Abdomen - PN: Normal Back - PN: Normal Breast - PN: Not Done Lungs - PN: Normal Heart - PN: Normal Thyroid - PN: Normal Neurologic - PN: Normal HEENT - PN: Normal General - PN: Normal FHR - Baseline A Provider: 120 Membranes, Provider: Intact Comments, ACOG Physical Exam: GEN: NAD Cardio: RRR, no murmurs Pulm: CTA bilaterally Abdom: Soft, gravid, fundal height ( 38cm) Ext: No edema, no cyanosis and no clubbing EFM: FHR : 120, + accels TOCO: None EGA AdmitDate IP: 38.4 Vital Signs Provider: Reviewed; Within Normal Limits IP Chief Complaint: Suspected ruptured membranes NICHD Variability Prov Fetus A: Moderate 6-25bpm NICHD Accel Fetus A IP Provider: 10X10 FHR Category Provider Fetus A: Category I NICHD Decel Fetus A IP Provider: None Dilatation, Provider: 0 Genitourinary Exam: Normal DTRs - PN: Normal
--- NOTE | 2017-09-30 16:21 | OBDCSUM ---
Datetime: 09/30/2017 16:15 Discharged to, Provider: Home Follow up at, Provider: Disch Instr Activity: Normal activity Disch Instr Diet: Regular Discharge Instructions, Provider: Routine instructions given Discharge Diagnosis, Provider: Term Delivered Discharge Time: 09/30/2017 16:15 Follow up in weeks, Provider: scheduled appointment Discharge Comment, Provider: Pt c/o of leaking of fluid SSE performed and no pool of fluid and Nitrazine negative Cx closed and long NST reactive Dr Robles in to see patient and she was discharged home with instructions to f/up in office. Datetime: 09/30/2017 15:23 Discharged to, Provider: Home Follow up at, Provider: DR ROBLES Disch Instr Activity: Normal activity Disch Instr Diet: Regular Discharge Time: 09/30/2017 15:23 Disch Referrals: None
== END 2017-09-30 15:23 | disposition home or self-care (01) ==
LOC: C.EROB 13:30
DX: O26.893 Other specified pregnancy related conditions, third trimester (principal); R10.30 Lower abdominal pain, unspecified; Z3A.38 38 weeks gestation of pregnancy

== ENCOUNTER 2017-10-07 09:35 | Inpatient (IN) | payer BC ==
[2017-10-07] MEDS ORDERED: Lactated Ringer's 1,000 ML IV ONE (10:43)
--- NOTE | 2017-10-07 11:05 | OBHP ---
Datetime: 10/07/2017 11:00 IP Adm Impression: Term, intrauterine IP Admit Plan: Admit to unit Admit Comment, IP Provider: @ 39.4 wks GA c/o lof, with crmapgn pian eveyr 10 min 09/24 dies vb, +FM OB: X 2 FT Uncompilcated LABORER GENERAL: Denies PMH: Dneis PSH: denies FH:X non contriboiryr MEDS: PNV SHX: neative etoh/tobacc/durgs NKDA A/P @ 39.4 wks GA with oligohymdramnis admit to L+D npo, ivf admisison labs cont otoc oadn efm pain managmet Pelvic Type - PN: Adequate Extremities - PN: Normal Abdomen - PN: Normal Back - PN: Normal Breast - PN: Normal Lungs - PN: Normal Heart - PN: Normal Thyroid - PN: Not Done Neurologic - PN: Normal HEENT - PN: Normal General - PN: Normal Presentation-Admit: Vertex FHR - Baseline A Provider: 145 Membranes, Provider: Intact Contraction Comments Provider: irreglar Comments, ACOG Physical Exam: ULtrsoudn vertex, tha 4.3cm Gestation - Est Wks by US: 39.4 IP Hx Assessment: The History has been Reviewed and is Current EGA AdmitDate IP: 39.4 Vital Signs Provider: Reviewed; Within Normal Limits IP Chief Complaint: Suspected ruptured membranes NICHD Variability Prov Fetus A: Moderate 6-25bpm FHR Category Provider Fetus A: Category I NICHD Decel Fetus A IP Provider: None Dilatation, Provider: 2 Effacement, Provider: 50-3 Genitourinary Exam: Normal DTRs - PN: Normal
--- NOTE | 2017-10-07 11:19 | OBADHP ---
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 PMH: Dneis PSH: denies FH:X non contriboiryr MEDS: PNV SHX: neative etoh/tobacc/durgs NKDA A/P @ 39.4 wks GA with oligohymdramnis admit to L+D npo, ivf admisison labs cont otoc oadn efm pain managmet Pelvic Type - PN: Adequate Extremities - PN: Normal Abdomen - PN: Normal Back - PN: Normal Breast - PN: Normal Lungs - PN: Normal Heart - PN: Normal Thyroid - PN: Not Done Neurologic - PN: Normal HEENT - PN: Normal General - PN: Normal Presentation-Admit: Vertex FHR - Baseline A Provider: 145 Membranes, Provider: Intact Contraction Comments Provider: irreglar Comments, ACOG Physical Exam: ULtrsoudn vertex, tha 4.3cm Gestation - Est Wks by US: 39.4 IP Hx Assessment: The History has been Reviewed and is Current Vital Signs Provider: Reviewed; Within Normal Limits IP Chief Complaint: Suspected ruptured membranes NICHD Variability Prov Fetus A: Moderate 6-25bpm FHR Category Provider Fetus A: Category I NICHD Decel Fetus A IP Provider: None Dilatation, Provider: 2 Effacement, Provider: 50-3 Genitourinary Exam: Normal DTRs - PN: Normal EGA AdmitDate IP: 39.4 IP Adm Impression: Term, intrauterine IP Admit Plan: Admit to unit Datetime: 09/30/2017 13:48 NICHD Accel Fetus A IP Provider: 10X10 Datetime: 09/15/2017 17:39 IP Chief Complaint Other: Severe heartburn and nausea sometimes
[2017-10-07 11:22] LABS: BASO % 0.4 % (0.0-2.0); EOS % 0.8 % (0.0-4.0); HEMOGLOBIN 10.4 g/dL (11.0-16.0); LYMPH # 1.5 K/uL (1.0-4.3); LYMPH % 25.5 % (20.0-40.0); MEAN CELL VOLUME 77.4 fL (81.0-99.0); MEAN CORPUSCULAR HEMOGLOBIN 25.3 pg (27.0-31.0); MEAN CORPUSCULAR HGB CONC 32.7 g/dL (33.0-37.0); MEAN PLATELET VOLUME 9.9 fL (7.2-11.7); MONO # 0.3 K/uL (0.0-0.8); MONO % 5.4 % (0.0-10.0); NEUT # 4.1 K/uL (1.8-7.0); NEUT % 67.9 % (50.0-75.0); NRBC % 0.1 % (0.0-2.0); RBC 4.1 Mil/uL (3.80-5.20); RED CELL DISTRIBUTION WIDTH 14.5 % (11.5-14.5); WHITE BLOOD COUNT 6.1 K/uL (4.8-10.8)
[2017-10-07 11:36] LABS: ALB/GLOB RATIO 0.9 (1.0-2.1); ALBUMIN 3.2 g/dL (3.5-5.0); ALT/SGPT 17 U/L (9-52); AST/SGOT 17 U/L (14-36); BLOOD UREA NITROGEN 5 mg/dL (7-17); CALCIUM 8.8 mg/dl (8.6-10.4); GFR AFRICAN-AMERICAN > 60; GFR NON-AFRICAN AMERICAN > 60
[2017-10-07 12:03] LABS: HEPATITIS B SURFACE AG Negative (NEGATIVE)
[2017-10-07 12:24] LABS: URINE BILIRUBIN NEGATIVE (NEGATIVE); URINE BLOOD NEGATIVE (NEGATIVE); URINE CLARITY Clear (Clear); URINE COLOR Yellow (YELLOW); URINE GLUCOSE (UA) NORMAL (Normal); URINE LEUKOCYTE ESTERASE TRACE Leu/uL (Negative); URINE PROTEIN NEGATIVE (NEGATIVE); URINE UROBILINOGEN NORMAL mg/dL (0.2-1.0)
[2017-10-07 13:02] LABS: SQUAMOUS EPITHIAL 10 /hpf (0-5); URINE BACTERIA RARE (<OCC)
--- NOTE | 2017-10-07 16:34 | OBPN ---
Datetime: 10/07/2017 16:30 IP Progress Impression: Normal progression of labor IP Informed Consent Obtain: Vaginal Delivery IP Procedures: Artificial ROM IP Progress Plan: Continue present management Membranes, Provider: Ruptured Amniotic Fluid Color, Provider: Clear FHR - Baseline A Provider: 135 Gestation - Est Wks by US: 39.4 Presentation-Admit: Vertex IP Progress Note Comment: pt seen adn examied c/o crampgn pain increasing intesntiy adn frquency VSS VE: 4/50/-3 vtx intact EFM: Cat I TOCO: q 2-3 min A/{ @ 39.4 wks GA in active labor -cont current mangmante FHR Category Provider Fetus A: Category I NICHD Variability Prov Fetus A: Moderate 6-25bpm Dilatation, Provider: 4 Effacement, Provider: 50 Station, Provider: -3 NICHD Decel Fetus A IP Provider: None Datetime: 10/07/2017 11:00 Contraction Comments Provider: irreglar Vital Signs Provider: Reviewed; Within Normal Limits Datetime: 09/30/2017 13:48 NICHD Accel Fetus A IP Provider: 10X10
[2017-10-07] MEDS ORDERED: DiphenhydrAMINE 50 mg/ml Inj IVP STA (16:36)
[2017-10-07] MEDS ORDERED: DiphenhydrAMINE 50 mg/ml Inj ONE (16:40)
[2017-10-07] MEDS ORDERED: Nalbuphine HCL 10 mg/ml Ampule IVP ONE (16:46)
[2017-10-07] MEDS ORDERED: Oxytocin 30 UNIT 30 UNITS/500 ML BAG IV SCH (18:15)
[2017-10-07] MEDS ORDERED: Oxytocin 30 UNIT 30 UNITS/500 ML BAG IV ONE (18:43)
--- NOTE | 2017-10-07 20:50 | OBPN ---
Datetime: 10/07/2017 20:45 IP Progress Impression: Normal progression of labor IP Progress Plan: Continue present management Membranes, Provider: Ruptured FHR - Baseline A Provider: 140 Gestation - Est Wks by US: 39.4 Presentation-Admit: Vertex IP Progress Note Comment: pt seen adn examiend c/o pain requesitng pain medicain VSS VE :/-2 vtx AROM, clear EMF: Cat I TOCO: q 2-5 min A/P @ 39.4 wks GA In labs anetehsi consult: thea sanchez, opting for epidural cont current managament Vital Signs Provider: Reviewed; Within Normal Limits FHR Category Provider Fetus A: Category I NICHD Variability Prov Fetus A: Moderate 6-25bpm Dilatation, Provider: 5 Effacement, Provider: 70 Station, Provider: -2
[2017-10-07] MEDS ORDERED: Bupivacaine HCl/FentaNYL Cit 100 ML EPI ONE (21:26)
[2017-10-07] MEDS ORDERED: Lidocaine Hydrochloride 0 ML INJ ONE (21:36)
--- NOTE | 2017-10-07 22:45 | OBPN ---
Datetime: 10/07/2017 22:40 IP Progress Impression: Normal progression of labor; Non-reassuring heart rate IP Progress Plan: Continue present management Membranes, Provider: Ruptured FHR - Baseline A Provider: 135 Gestation - Est Wks by US: 39.4 Presentation-Admit: Vertex IP Progress Note Comment: Pt seen and eamiend s/p epdural with variablity decleraitn oxygen, left lateral decuilbts postion, ivh VSS V:E 7cm EMF: dillon II TOCO: q 2-4 mn A/P @ 39.4 wks GA in labor -oxygen, left lateral ivh, -dc pitoicsn -consider amnioinfusion FHR Category Provider Fetus A: Category II NICHD Variability Prov Fetus A: Moderate 6-25bpm Dilatation, Provider: 7 Effacement, Provider: 80 Station, Provider: -1 NICHD Decel Fetus A IP Provider: Variable
--- NOTE | 2017-10-07 23:23 | OBDS ---
MATERNAL INFORMATION Provider Comments: pt was fully dilated and pushing, atruamtic, spontaneous dleivye rof head, tight nuchal cord x 1 looseend. atraumati, spontanoues delivery of anteiror followed by posteroir sholuder followed by delivery of the body. both oral and nasal pasages of the baby were bulb suctioned. umbili jackeline crod clamped and cut. baby handed to mother on abodmen with rn assistance. Cord blood adn cord g asese collected and sent x 2. Spontaneous delivery of intact placenta with membranes. Funuds firm. G ood hemostasis. intact perineum, no lacerations. live female infant agpars 9,9 weigt of 7lbs 8 ounces ebl 200ml no complications pediatrican present for delivery LABOR SUMMARY EDC: 10/10/2017 00:00 No. Babies in Womb: 1 Attempted: No Labor Anesthesia: None LABOR INFORMATION Onset of Labor: 10/07/2017 16:23 Cervical Ripening Agents: Cervidil (Annotations: removed at this time) Group B Beta Strep: Negative (Annotations: 09/16/17) MEMBRANES Membranes Rupture Method: Artificial Amniotic Fluid Color: Clear Amniotic Fluid Amount: Moderate Amniotic Fluid Odor: Normal STAGES OF LABOR Stage 3 hrs: 0 Stage 3 min: 4 Total Time in Labor hrs: 6 Total Time in Labor min: 52 BABY A INFORMATION Infant Delivery Date/Time: 10/07/2017 23:11 Method of Delivery: Vaginal Born in Route : No : N/A Forceps: N/A Vacuum Extraction: N/A Shoulder Dystocia : No SHOULDER DYSTOCIA BABY A Infant Delivery Date/Time: 10/07/2017 23:11 PRESENTATION/POSITION BABY A Presentation: Cephalic Cephalic Presentation: Vertex Breech Presentation: N/A PLACENTA INFORMATION BABY A Placenta Delivery Time : 10/07/2017 23:15 Placenta Method of Delivery: Spontaneous Placenta Status: Delivered INFORMATION BABY A Gestational Age at Delivery: 39.4 Gestational Status: Term Infant Outcome : Liveborn Condition : Stable Sex: Female IDENTIFICATION/MEDS BABY A ID Band Number: [id number] ID Band Location: Left Leg; Left Arm Sensor Applied: Yes Sensor Number: [id number] Sensor Location : Cord Clamp Vitamin K Given : Aquamephyton 1 mg IM WEIGHT/LENGTH BABY A Infant Birthweight (gms): 3410 Weight (lb): 7 Weight (oz): 8 Infant Length Inches: 20.00 Length cms: 50.8 CORD INFORMATION BABY A No. Cord Vessels: 3 Nuchal Cord : Around Neck x1, Tight Cord Blood Taken: Yes Suction: None
--- NOTE | 2017-10-08 07:03 | OBPPN ---
Datetime: 10/08/2017 06:57 PP Pain Prov: Within normal limits PP Nausea Prov: Denies PP Flatus Prov: Yes PP BM Prov: No PP Breasts Prov: Normal PP Heart Prov: Normal PP Lungs Prov: Normal PP Abdomen/Uterus Prov: Normal PP Lochia Prov: Normal PP Vulva/Perineum Prov: Normal PP CVA Tenderness Prov: Normal PP Extremities Prov: Normal PP C/S Incision Prov: Not Applicable PP Progress Prov: Normal PP Impression Prov: Normal progression PP Plan Prov: Continue present management PP Progress Note Prov: pt seen and examined adn reports pain is well controlled. Pt denies any fever , chills, nause, vomiing, cp, sob, bowel concner. pt is ambulating, voiding, passing flatus, tolerat ing regular diet, bresat feedign adn denies any sadness or depression VSS PE GEN NAD AAO x 3 RESP: CTAB?/l CVS: RRR, +S1/S2 ABD: Soft, NT/ND, no ugarding, no rebound tendnerss, no rigidity, B+S FUNDUS: Firm, at leve of umbiulics, non tender VE: minimal lochia, non foul smelling EXT: no calf tendnerss b/l, negatrive homans sign A/P s/p PPD #1 am labs pain managment regular diet encourage mabatiuon / breast feeding Vital Signs Provider PP: Reviewed; Within Normal Limits
[2017-10-08] MEDS: Oxycodone/Acetaminophen 5/325 mg Tab PO PRN ×3 (07:50→21:20)
[2017-10-08 08:52] LABS: BASO % 0.2 % (0.0-2.0); EOS % 0.3 % (0.0-4.0); HEMOGLOBIN 9.9 g/dL (11.0-16.0); LYMPH # 2.1 K/uL (1.0-4.3); LYMPH % 20.1 % (20.0-40.0); MEAN CELL VOLUME 77.5 fL (81.0-99.0); MEAN CORPUSCULAR HGB CONC 32.3 g/dL (33.0-37.0); MEAN PLATELET VOLUME 10.1 fL (7.2-11.7); MONO # 0.8 K/uL (0.0-0.8); MONO % 7.9 % (0.0-10.0); NEUT # 7.3 K/uL (1.8-7.0); NEUT % 71.5 % (50.0-75.0); RBC 3.96 Mil/uL (3.80-5.20); RED CELL DISTRIBUTION WIDTH 14.4 % (11.5-14.5)
[2017-10-08 08:56] LABS: WHITE BLOOD COUNT 10.2 K/uL (4.8-10.8)
[2017-10-08] MEDS: Multiple Vitamins Tab PO SCH (10:04)
[2017-10-09] MEDS: Oxycodone/Acetaminophen 5/325 mg Tab PO PRN ×4 (02:38→21:04)
[2017-10-09] MEDS: Multiple Vitamins Tab PO SCH (09:02)
--- NOTE | 2017-10-09 12:15 | OBPPN ---
Datetime: 10/09/2017 12:14 PP Pain Prov: Within normal limits PP Nausea Prov: Denies PP Flatus Prov: Yes PP BM Prov: Yes PP Breasts Prov: Normal PP Heart Prov: Normal PP Lungs Prov: Normal PP Abdomen/Uterus Prov: Normal PP Lochia Prov: Normal PP Vulva/Perineum Prov: Normal PP CVA Tenderness Prov: Normal PP Extremities Prov: Normal PP C/S Incision Prov: Not Applicable PP Progress Prov: Normal PP Impression Prov: Normal progression PP Plan Prov: Continue present management; Discharge PP Progress Note Prov: pt seen and examiend reprots sydnee voorting, delilahaitn, ovidng, pasisf lfauts , VSS PE see aobve a/p s/p ppd #2 dc home rto 6 weeks Vital Signs Provider PP: Reviewed; Within Normal Limits
--- NOTE | 2017-10-09 12:18 | OBDCSUM ---
Datetime: 10/09/2017 12:15 Discharged to, Provider: Home Follow up at, Provider: Dr Sue Disch Instr Activity: Normal activity Disch Instr Diet: Regular Discharge Instructions, Provider: Routine instructions given Discharge Diagnosis, Provider: Term Delivered Discharge Time: 10/09/2017 12:15 Follow up in weeks, Provider: 6 weeks Disch Referrals: None Contraception discussed, Prov: Yes Disch Activity Restrictions: No sexual activity; Nothing in vagina - [place], tampons, douche Contraception after Delivery: Not Planning to Use
[2017-10-10 00:42] VITALS: TEMP 98.3; O2SAT 98
[2017-10-10] MEDS: Oxycodone/Acetaminophen 5/325 mg Tab PO PRN (04:14)
--- NOTE | 2017-10-10 04:38 | OBDCSUM ---
Datetime: 10/10/2017 04:37 Discharged to, Provider: Home Follow up at, Provider: Dr Vikram Watkins Instr Activity: Normal activity Disch Instr Diet: Regular Discharge Instructions, Provider: Routine instructions given Discharge Diagnosis, Provider: Term Delivered Discharge Time: 10/10/2017 11:00 Follow up in weeks, Provider: Ketan Watkins Referrals: None Contraception discussed, Prov: Yes Disch Activity Restrictions: No sexual activity; Nothing in vagina - [place], tampons, douche Discharge Comment, Provider: pt declined contrapceiton pror to discharge Contraception after Delivery: Not Planning to Use
--- NOTE | 2017-10-10 04:38 | OBPPN ---
Datetime: 10/10/2017 04:36 PP Pain Prov: Within normal limits PP Nausea Prov: Denies PP Flatus Prov: Yes PP BM Prov: Yes PP Breasts Prov: Normal PP Heart Prov: Normal PP Lungs Prov: Normal PP Abdomen/Uterus Prov: Normal PP Lochia Prov: Normal PP Vulva/Perineum Prov: Normal PP CVA Tenderness Prov: Normal PP Extremities Prov: Normal PP C/S Incision Prov: Not Applicable PP Progress Prov: Normal PP Impression Prov: Normal progression PP Plan Prov: Continue present management PP Progress Note Prov: pt seen and examiend reports pain tolerable iwht meds. pt ambulating to bathr oom voiidn, tolerating regular ddiet, no heavy bleeding, denies any fever, chills, nause, ovmiting, is breast feeding. pt preports pain is better contorlled and feels much better VSS PE: GEN: NAD AA Ox 3 RESP: CTAB/l CVS: RRR, +S1/S2 ABD: Soft, NT, ND, no ugarding no rebound tenderness nor igidty no uterine tendnerss VE: minimal lochia ,non foul smelling EXT: no calf tendeness, negative brian's sign A/P s/p SNVD PPD #3 pain managment regular diet encourage breast feeding and ambulation anticate dc today Vital Signs Provider PP: Reviewed; Within Normal Limits
[2017-10-10 20:49] VITALS: BP 120/71; PULSE 83; RESP 18
== END 2017-10-10 12:30 | disposition home or self-care (01) | DRG 775 ==
LOC: C.EROB 09:35 → C.4D 10:43 → C.4M 10-08 01:45
PROVIDERS: ADMIT Obstetrics & Gynecology; ATTEND Obstetrics & Gynecology
PROC: 10E0XZZ Delivery of Products of Conception, External Approach (ICD-10-PCS; principal; 2017-10-07)
PROC: 3E0P7VZ Introduction of Hormone into Female Reproductive, Via Natural or Artificial Opening (ICD-10-PCS; 2017-10-07)
PROC: 10907ZC Drainage of Amniotic Fluid, Therapeutic from Products of Conception, Via Natural or Artificial Opening (ICD-10-PCS; 2017-10-07)
DX: O41.03X0 Oligohydramnios, third trimester, not applicable or unspecified (principal); O69.1XX0 Labor and delivery complicated by cord around neck, with compression, not applicable or unspecified; O75.89 Other specified complications of labor and delivery; R12 Heartburn; Z3A.39 39 weeks gestation of pregnancy; Z37.0 Single live birth

== ENCOUNTER 2018-03-16 22:48 | Emergency (ER) | payer BC ==
[2018-03-16 22:49] VITALS: BMI 34.1
[2018-03-16 23:06] VITALS: O2SAT 100
--- NOTE | 2018-03-17 00:29 | C.PDOC ---
History Of Present Illness 32 year old female, breast feeding a 5 month old, presents to the ED c/o fever, cough, congestion, body aches that stared yesterday. Patient states she did not had the flu vaccine this year and has not taken any medications at home. Patient denies nausea, vomit, diarrhea, abdominal pain, rash, dysuria, hematuria, recent travel, sick contacts. Time Seen by Provider: 03/16/18 23:30 Chief Complaint (Nursing): Flu-like Symptoms History Per: Patient History/Exam Limitations: no limitations Onset/Duration Of Symptoms: Days (1) Current Symptoms Are (Timing): Still Present Recent travel outside of the [place]: No Additional History Per: Patient Past Medical History Reviewed: Historical Data, Nursing Documentation, Vital Signs Vital Signs: Last Vital Signs Temp 100.4 F H 03/16/18 23:02 Pulse 116 H 03/16/18 23:02 Resp 20 03/16/18 23:02 BP 117/80 03/16/18 23:02 Pulse Ox 100 03/16/18 23:02 - Medical History PMH: No Chronic Diseases Surgical History: No Surg Hx - [facility] Procedures (10/07/17) DELIVERY OF PRODUCTS OF CONCEPTION, EXTERNAL APPROACH (10/07/17) DRAINAGE OF AMNIOTIC FL, THERAP FROM POC, VIA OPENING (10/07/17) Family History: States: Unknown Family Hx - Social History Hx Tobacco Use: No Hx Alcohol Use: No Hx Substance Use: No - Immunization History Hx Tetanus Toxoid Vaccination: No Hx Influenza Vaccination: No Hx Pneumococcal Vaccination: No Review Of Systems Constitutional: Positive for: Fever, Malaise. Negative for: Chills ENT: Positive for: Nose Discharge, Nose Congestion. Negative for: Throat Pain Respiratory: Positive for: Cough. Negative for: Shortness of Breath, Sputum, Wheezing Gastrointestinal: Negative for: Nausea, Vomiting, Abdominal Pain, Diarrhea Skin: Negative for: Rash Physical Exam - Physical Exam Appears: Non-toxic, No Acute Distress Skin: Normal Color, Warm, Dry Head: Atraumatic, Normacephalic, Tenderness (sinuses) Eye(s): bilateral: Normal Inspection Nose: Discharge (clear), Other (congested) Oral Mucosa: Moist Throat: Erythema, No Exudate, No Drooling Neck: Normal ROM, Supple Chest: Symmetrical Cardiovascular: Rhythm Regular Respiratory: Normal Breath Sounds, No Rales, No Rhonchi, No Wheezing Gastrointestinal/Abdominal: Soft, No Tenderness, No Guarding, No Rebound Extremity: Normal ROM, No Tenderness, No Swelling Neurological/Psych: Oriented x3, Normal Speech, Normal Cognition Gait: Steady ED Course And Treatment O2 Sat by Pulse Oximetry: 100 (ON RA) Pulse Ox Interpretation: Normal Medical Decision Making Medical Decision Making: Plan: * Tylenol 975 mg PO * Influenza A B Influenza tets came back negative, patient will be D/C and advised to take Tylenol (safe to take with ) for symptoms. Patient understands and agrees with plan. Patient was advised to follow up with PMD or clinic. Disposition Counseled Patient/Family Regarding: Studies Performed, Diagnosis, Need For Followup, Rx Given - Disposition Referrals: [facility] [Outside] Disposition: HOME/ ROUTINE Disposition Time: 00:27 Condition: GOOD Additional Instructions: Drink increased fluids. Gargle with warm salty water a few times a day. Tylenol for pain or fever. Folliw up in medical clinic. Prescriptions: Acetaminophen [Tylenol 325mg tab] 650 mg PO Q4 #50 tab Instructions: Flu, Adult (DC) Forms: General Discharge Instructions, [facility] (Polish), Work Excuse - Clinical Impression Clinical Impression: Influenza-like illness - PA / FOOD STYLIST / Resident Statement MD/DO has reviewed & agrees with the documentation as recorded. - Scribe Statement The provider has reviewed the documentation as recorded by the Scribe August Talamantes All medical record entries made by the Scribe were at my direction and personally dictated by me. I have reviewed the chart and agree that the record accurately reflects my personal performance of the history, physical exam, medical decision making, and the department course for this patient. I have also personally directed, reviewed, and agree with the discharge instructions and disposition.
[2018-03-17 00:45] VITALS: BP 131/84; PULSE 89; RESP 18; TEMP 99
== END 2018-03-17 00:45 | disposition home or self-care (01) ==
LOC: C.ER 22:48
DX: J11.1 Influenza due to unidentified influenza virus with other respiratory manifestations (principal); Z87.891 Personal history of nicotine dependence

== ENCOUNTER 2018-06-04 10:24 | Emergency (ER) | payer BC ==
[2018-06-04 10:24] VITALS: BMI 34.1
[2018-06-04 10:44] VITALS: BP 111/75; RESP 18; O2SAT 96
--- NOTE | 2018-06-04 12:20 | C.PDOC ---
History Of Present Illness 32 y/o female,w/no significant PMhx, presents to the ER complaining of tactile fever, frontal headache, dizziness, cough, body aches, and generalized weakness which has been present for the past 3 days. Patient states that she did not receive the flu vaccination this year. Patient denies having neck pain, neck stiffness, CP,SOB, nausea,vomiting, and abdominal pain. Chief Complaint (Nursing): Flu-like Symptoms History Per: Patient History/Exam Limitations: no limitations Onset/Duration Of Symptoms: Days Current Symptoms Are (Timing): Still Present Severity: Moderate Past Medical History Reviewed: Historical Data, Nursing Documentation, Vital Signs Vital Signs: Last Vital Signs Temp 99 F 06/04/18 10:39 Pulse 104 H 06/04/18 10:39 Resp 18 06/04/18 10:39 BP 111/75 06/04/18 10:39 Pulse Ox 96 06/04/18 10:39 - Medical History PMH: No Chronic Diseases Denies: Depression, Diabetes, HTN Surgical History: No Surg Hx - [facility] Procedures (10/07/17) DELIVERY OF PRODUCTS OF CONCEPTION, EXTERNAL APPROACH (10/07/17) DRAINAGE OF AMNIOTIC FL, THERAP FROM POC, VIA OPENING (10/07/17) Family History: States: No Known Family Hx - Social History Hx Tobacco Use: No Hx Alcohol Use: No Hx Substance Use: No - Immunization History Hx Tetanus Toxoid Vaccination: No Hx Influenza Vaccination: No Hx Pneumococcal Vaccination: No Review Of Systems Except As Marked, All Systems Reviewed And Found Negative. Constitutional: Positive for: Fever (tactile fever), Weakness. Negative for: Chills Cardiovascular: Negative for: Chest Pain Respiratory: Positive for: Cough. Negative for: Shortness of Breath Gastrointestinal: Negative for: Nausea, Vomiting, Abdominal Pain Neurological: Positive for: Headache, Dizziness Physical Exam - Physical Exam Appears: Non-toxic, No Acute Distress Skin: Normal Color, Warm, Dry Head: Atraumatic, Normacephalic Eye(s): bilateral: Normal Inspection Ear(s): Bilateral: Normal Nose: Normal Oral Mucosa: Moist Throat: Normal, No Erythema, No Exudate Neck: Supple Chest: Symmetrical Cardiovascular: Rhythm Regular Respiratory: Normal Breath Sounds, No Rales, No Rhonchi, No Wheezing Neurological/Psych: Oriented x3, Normal Speech ED Course And Treatment O2 Sat by Pulse Oximetry: 96 (RA) Pulse Ox Interpretation: Normal Disposition Counseled Patient/Family Regarding: Diagnosis, Need For Followup - Disposition Referrals: [facility] [Outside] [facility] [Outside] Vahe Banda MD [Staff Provider] - Disposition: HOME/ ROUTINE Disposition Time: 12:17 Condition: STABLE Additional Instructions: SEBAS KEYES, thank you for letting us take care of you today. Your provider was Mary Leslie MD and you were treated for HEADACHE/COUGHING. The emergency medical care you received today was directed at your acute symptoms. If you were prescribed any medication, please fill it and take as directed. It may take several days for your symptoms to resolve. Return to the Emergency Department if your symptoms worsen, do not improve, or if you have any other problems. Please call one of the physicians/clinics you have been referred to that are listed on the Patient Visit Information form that is included in your discharge packet for a follow up appointment in 1-2 days. Bring any paperwork you were given at discharge with you along with any medications you are taking to your follow up visit. Our treatment cannot replace ongoing medical care by a primary care provider outside of the emergency department. Thank you for allowing the [employer] team to be part of your care today. Prescriptions: Oseltamivir Phosphate [Tamiflu] 75 mg PO BID #10 capsule Instructions: Flu, Adult (DC) Forms: General Discharge Instructions, [email or web address] (Mexican), Work Excuse - POA Present On Arrival: None - Clinical Impression Clinical Impression: Influenza-like illness - Scribe Statement The provider has reviewed the documentation as recorded by the Randell Villeda Provider Attestation: All medical record entries made by the Scribe were at my direction and personally dictated by me. I have reviewed the chart and agree that the record accurately reflects my personal performance of the history, physical exam, medical decision making, and the department course for this patient. I have also personally directed, reviewed, and agree with the discharge instructions and disposition.
[2018-06-04 13:00] VITALS: PULSE 85; TEMP 98
== END 2018-06-04 13:00 | disposition home or self-care (01) ==
LOC: C.ER 10:24
DX: J11.1 Influenza due to unidentified influenza virus with other respiratory manifestations (principal)